=== PATIENT | female | born 1975 | race Native Hawaiian/Other Pacific Islander ===

== ENCOUNTER 2017-03-25 20:26 | Emergency (ER) | payer OTHER ==
[~2017-03-25] VITALS: Ht 170.2 cm; Wt 102.1 kg
[2017-03-25 21:09] VITALS: BP 154/86; TEMP 98.6
== END 2017-03-25 21:11 | disposition home or self-care (01) ==
LOC: ED 20:26
DX: Z45.89 Encounter for adjustment and management of other implanted devices (principal)
CPT/HCPCS: 99281

== ENCOUNTER 2017-07-25 13:10 | Outpatient (CLI) | payer OTHER ==
[2017-07-25 14:06] LABS: PLATELET COUNT 116 K/uL (152-353)
[2017-07-25 14:14] LABS: PARTIAL THROMBOPLASTIN TIME 24.7 SECONDS (24.5-33.6)
[2017-07-25 15:18] LABS: POTASSIUM 3.6 mmol/L (3.6-5.2)
== END 2017-07-25 22:16 | disposition home or self-care (01) ==
LOC: LABW 13:10
DX: K75.81 Nonalcoholic steatohepatitis (NASH) (principal); K74.69 Other cirrhosis of liver; Z79.899 Other long term (current) drug therapy; Z51.81 Encounter for therapeutic drug level monitoring
CPT/HCPCS: 36415; 80053; 82105; 82977; 83036; 85027; 85610; 85730

== ENCOUNTER 2017-10-13 15:57 | Outpatient (CLI) | payer OTHER | END 2017-10-13 20:37 | disposition home or self-care (01) | LOC: US 15:57 | DX: R60.0 Localized edema (principal); M79.605 Pain in left leg ==

== ENCOUNTER 2017-12-09 11:00 | Outpatient (CLI) | payer OTHER | END 2017-12-09 22:28 | disposition home or self-care (01) | LOC: RAD 11:00 | DX: M46.1 Sacroiliitis, not elsewhere classified (principal) ==

== ENCOUNTER 2018-07-02 15:20 | Outpatient (CLI) | payer OTHER ==
[2018-07-02 15:36] LABS: PLATELET COUNT 131 K/uL (152-353)
[2018-07-02 16:17] LABS: POTASSIUM 4.1 mmol/L (3.6-5.2)
== END 2018-07-02 21:39 | disposition home or self-care (01) ==
LOC: LABW 15:20
PROVIDERS: Internal Medicine Transplant Hepatology
DX: K75.81 Nonalcoholic steatohepatitis (NASH) (principal); K74.60 Unspecified cirrhosis of liver
CPT/HCPCS: 36415; 80053; 82105; 85027; 85610

== ENCOUNTER 2018-09-02 09:07 | Day surgery (SDC) | payer OTHER ==
[~2018-09-02] VITALS: Ht 170.2 cm; Wt 96.2 kg
[2018-09-02 10:27] LABS: PARTIAL THROMBOPLASTIN TIME 22.7 SECONDS (24.5-33.6)
== END 2018-09-02 11:15 | disposition home or self-care (01) ==
LOC: OR 09:07
PROVIDERS: Pain Medicine Interventional Pain Medicine
PROC: 3E0U33Z Introduction of Anti-inflammatory into Joints, Percutaneous Approach (ICD-10-PCS; principal; 2018-09-02)
PROC: 3E0U3BZ Introduction of Anesthetic Agent into Joints, Percutaneous Approach (ICD-10-PCS; 2018-09-02)
DX: M53.3 Sacrococcygeal disorders, not elsewhere classified (principal); M46.1 Sacroiliitis, not elsewhere classified; M47.818 Spondylosis without myelopathy or radiculopathy, sacral and sacrococcygeal region; R79.1 Abnormal coagulation profile
CPT/HCPCS: 36415; 85610; 85730; J1020; J1100; J1885; J3490

== ENCOUNTER 2018-09-23 15:07 | Outpatient (CLI) | payer OTHER | END 2018-09-23 19:25 | disposition home or self-care (01) | LOC: LAB 15:07 | DX: R19.7 Diarrhea, unspecified (principal) | CPT/HCPCS: 82272; 83630; 87015; 87045; 87324; 87328; 87329; 87449; 87899 ==

== ENCOUNTER 2018-10-13 10:13 | Day surgery (SDC) | payer OTHER ==
[~2018-10-13] VITALS: Ht 30.5 cm; Wt 0.5 kg
== END 2018-10-13 11:56 | disposition home or self-care (01) ==
LOC: OR 10:13
PROC: 3E0R33Z Introduction of Anti-inflammatory into Spinal Canal, Percutaneous Approach (ICD-10-PCS; principal; 2018-10-13)
PROC: 3E0R3BZ Introduction of Anesthetic Agent into Spinal Canal, Percutaneous Approach (ICD-10-PCS; 2018-10-13)
DX: M47.818 Spondylosis without myelopathy or radiculopathy, sacral and sacrococcygeal region (principal); M53.3 Sacrococcygeal disorders, not elsewhere classified; M46.1 Sacroiliitis, not elsewhere classified; Z79.01 Long term (current) use of anticoagulants
CPT/HCPCS: 36415; 85610; J1020; J1815; J3490

== ENCOUNTER 2019-01-05 09:13 | Day surgery (SDC) | payer OTHER | END 2019-01-05 10:59 | disposition home or self-care (01) | LOC: OR 09:13 | PROC: 3E0T3BZ Introduction of Anesthetic Agent into Peripheral Nerves and Plexi, Percutaneous Approach (ICD-10-PCS; principal; 2019-01-05) | PROC: 3E0T33Z Introduction of Anti-inflammatory into Peripheral Nerves and Plexi, Percutaneous Approach (ICD-10-PCS; 2019-01-05) | PROC: BR16YZZ Fluoroscopy of Lumbar Facet Joint(s) using Other Contrast (ICD-10-PCS; 2019-01-05) | DX: M47.817 Spondylosis without myelopathy or radiculopathy, lumbosacral region (principal) | CPT/HCPCS: J1100; J2001 ==

== ENCOUNTER 2019-01-26 09:54 | Day surgery (SDC) | payer OTHER | END 2019-01-26 11:10 | disposition home or self-care (01) | LOC: OR 09:54 | PROC: 3E0T3BZ Introduction of Anesthetic Agent into Peripheral Nerves and Plexi, Percutaneous Approach (ICD-10-PCS; principal; 2019-01-26) | PROC: BR16YZZ Fluoroscopy of Lumbar Facet Joint(s) using Other Contrast (ICD-10-PCS; 2019-01-26) | DX: M47.817 Spondylosis without myelopathy or radiculopathy, lumbosacral region (principal) | CPT/HCPCS: J1100; J2001 ==

== ENCOUNTER 2019-03-30 10:38 | Day surgery (SDC) | payer OTHER | END 2019-03-30 16:00 | disposition home or self-care (01) | LOC: OR 10:38 | PROC: 3E0T3TZ Introduction of Destructive Agent into Peripheral Nerves and Plexi, Percutaneous Approach (ICD-10-PCS; principal; 2019-03-30) | PROC: BR16YZZ Fluoroscopy of Lumbar Facet Joint(s) using Other Contrast (ICD-10-PCS; 2019-03-30) | DX: M47.817 Spondylosis without myelopathy or radiculopathy, lumbosacral region (principal) | CPT/HCPCS: J2001 ==

== ENCOUNTER 2019-11-23 08:12 | Day surgery (SDC) | payer OTHER ==
[2019-11-23 09:33] LABS: PARTIAL THROMBOPLASTIN TIME 24.1 SECONDS (24.5-33.6)
== END 2019-11-23 10:17 | disposition home or self-care (01) ==
LOC: OR 08:12
PROVIDERS: Pain Medicine Interventional Pain Medicine
PROC: 3E0R33Z Introduction of Anti-inflammatory into Spinal Canal, Percutaneous Approach (ICD-10-PCS; principal; 2019-11-23)
PROC: 3E0R3BZ Introduction of Anesthetic Agent into Spinal Canal, Percutaneous Approach (ICD-10-PCS; 2019-11-23)
DX: M53.3 Sacrococcygeal disorders, not elsewhere classified (principal); M46.1 Sacroiliitis, not elsewhere classified; Z79.01 Long term (current) use of anticoagulants
CPT/HCPCS: 85610; 85730; J1020; J3490

== ENCOUNTER 2020-04-21 14:37 | Outpatient (CLI) | payer OTHER | END 2020-04-21 23:08 | disposition home or self-care (01) | LOC: MRI 14:37 | PROVIDERS: ATTEND Pain Medicine Interventional Pain Medicine | DX: M54.16 Radiculopathy, lumbar region (principal) ==

== ENCOUNTER 2020-04-27 14:46 | Outpatient (CLI) | payer OTHER | END 2020-04-27 20:11 | disposition home or self-care (01) | LOC: MRI 14:46 | PROVIDERS: ATTEND Internal Medicine | DX: E23.0 Hypopituitarism (principal); E23.2 Diabetes insipidus; E11.9 Type 2 diabetes mellitus without complications; E04.2 Nontoxic multinodular goiter; E66.9 Obesity, unspecified; Z78.0 Asymptomatic menopausal state; F17.220 Nicotine dependence, chewing tobacco, uncomplicated | CPT/HCPCS: A9576 ==

== ENCOUNTER 2021-01-12 12:22 | Inpatient (IN) | payer OTHER ==
[2021-01-12] VITALS (10 sets, daily range): BP systolic 73–148; BP diastolic 28–65; TEMP 97.8–98.9; Ht 170.2 cm; Wt 112.5 kg
[~2021-01-12] VITALS: Ht 170.2 cm; Wt 112.5 kg
[2021-01-12 13:45] LABS: PLATELET COUNT 103 K/uL (152-353)
[2021-01-12 13:58] LABS: POTASSIUM 3.5 mmol/L (3.6-5.2)
[2021-01-12 14:37] LABS: PARTIAL THROMBOPLASTIN TIME 32.1 SECONDS (24.5-33.6)
[2021-01-13] VITALS (37 sets, daily range): BP systolic 42–167; BP diastolic 14–120; TEMP 97.5–98.2
[2021-01-13 08:09] LABS: PLATELET COUNT 68 K/uL (152-353); POTASSIUM 4.1 mmol/L (3.6-5.2)
[2021-01-13 14:53] LABS: PLATELET COUNT 82 K/uL (152-353)
[2021-01-13 15:07] LABS: POTASSIUM 4.3 mmol/L (3.6-5.2)
[2021-01-14] VITALS (14 sets, daily range): BP systolic 75–106; BP diastolic 22–49; TEMP 97.4–98.8
[2021-01-14 07:25] LABS: POTASSIUM 4.4 mmol/L (3.6-5.2)
[2021-01-14 07:26] LABS: PLATELET COUNT 70 K/uL (152-353)
[2021-01-14 15:38] LABS: POTASSIUM 4.8 mmol/L (3.6-5.2)
[2021-01-14 20:29] LABS: POTASSIUM 5.9 mmol/L (3.6-5.2)
== END 2021-01-14 23:30 | disposition expired | DRG 432 ==
LOC: ED 12:22 → MED/SURG 17:38 → ICU 01-13 11:38
PROVIDERS: Emergency Medicine Emergency Medical Services; ADMIT Internal Medicine Endocrinology, Diabetes & Metabolism; ATTEND Internal Medicine Endocrinology, Diabetes & Metabolism
PROC: 5A1945Z Respiratory Ventilation, 24-96 Consecutive Hours (ICD-10-PCS; principal; 2021-01-13)
PROC: 0BH17EZ Insertion of Endotracheal Airway into Trachea, Via Natural or Artificial Opening (ICD-10-PCS; 2021-01-13)
PROC: 30233K1 Transfusion of Nonautologous Frozen Plasma into Peripheral Vein, Percutaneous Approach (ICD-10-PCS; 2021-01-14)
DX: K74.69 Other cirrhosis of liver (principal); J96.01 Acute respiratory failure with hypoxia; N39.0 Urinary tract infection, site not specified; R18.8 Other ascites; D68.8 Other specified coagulation defects; I46.9 Cardiac arrest, cause unspecified; K75.81 Nonalcoholic steatohepatitis (NASH); R53.1 Weakness; E03.8 Other specified hypothyroidism; K21.9 Gastro-esophageal reflux disease without esophagitis; B96.1 Klebsiella pneumoniae [K. pneumoniae] as the cause of diseases classified elsewhere; E11.9 Type 2 diabetes mellitus without complications; F41.8 Other specified anxiety disorders; I95.89 Other hypotension; K72.10 Chronic hepatic failure without coma; D69.6 Thrombocytopenia, unspecified
CPT/HCPCS: 31500; 36415; 36600; 80048; 80053; 81000; 82140; 82550; 82805; 83605; 83690; 83735; 83880; 84484; 85007; 85027; 85379; 85610; 85730; 86900; 86901; 87040; 87077; 87086; 87088; 87185; 87186; 87205; 87635; 93005; 94002; 94003; 96365; 96374; 99284; J0171; J0282; J0696; J1170; J1265; J1885; J1956; J2250; J2405; J2930; J3490; P9017; P9047; Q9963; U0003